=== PATIENT | female | born 1990 | race Hispanic/Latino ===

== ENCOUNTER 2017-07-10 20:44 | Observation (INO) | payer OTHER ==
[2017-07-10 20:56] VITALS: RESP 16; TEMP 98
[2017-07-10] MEDS ORDERED: Iohexol 240 (50 ml) PO ONE (22:07)
[2017-07-10] MEDS ORDERED: Iohexol 240 (50 ml) ONE (22:21)
[2017-07-10 22:22] LABS: BASO % 0.4 % (0.0-2.0); EOS # 0.1 K/uL (0.0-0.7); EOS % 0.9 % (0.0-4.0); HEMATOCRIT 38.2 % (34.0-47.0); MEAN CELL VOLUME 87.7 fl (81.0-99.0); MEAN CORPUSCULAR HEMOGLOBIN 28.9 pg (27.0-31.0); MEAN CORPUSCULAR HGB CONC 32.9 g/dL (33.0-37.0); MEAN PLATELET VOLUME 9.4 fl (7.2-11.7); MONO # 0.7 K/uL (0.0-0.8); MONO % 7.2 % (0.0-10.0); NEUT # 6.2 K/uL (1.8-7.0); NEUT % 61.5 % (50.0-75.0); NRBC % 0.1 % (0.0-0.0); RED CELL DISTRIBUTION WIDTH 15.1 % (11.5-14.5); WHITE BLOOD COUNT 10.1 K/uL (4.8-10.8)
--- NOTE | 2017-07-10 22:23 | ED PDOC ---
HPI: Abdomen Time Seen by Provider: 07/10/17 21:12 Chief Complaint (Nursing): Abdominal Pain Chief Complaint (Provider): Abdominal pain History Per: Patient History/Exam Limitations: no limitations Onset/Duration Of Symptoms: Days (1) Additional Complaint(s): Patient is a 27 y/o female with no significant past medical history presenting to the emergency department for bilateral lower abdominal pain that started today, described as a needle-like, stabbing sensation that is worse on the right side. Also reports intermittent bleeding from the rectum for the past two weeks, with an episode of bright red rectal bleeding occurring once yesterday and once today. Denies NSAID abuse, surgical history, or other complaints. PCP: none provided. ED Scribe Attestation - Scribe Statement Scribe Attestation: Documented by Joviibename acting as a scribe for Christian Lowe MD. Provider Scribe Attestation: All medical record entries made by the Scribe were at my direction and personally dictated by me. I have reviewed the chart and agree that the record accurately reflects my personal performance of the history, physical exam, medical decision making, and the department course for this patient. I have also personally directed, reviewed, and agree with the discharge instructions and disposition. Past Medical History Reviewed: Historical Data Vital Signs: Last Vital Signs Temp 98.0 F 07/10/17 20:53 Pulse 78 07/11/17 03:02 Resp 16 07/10/17 20:53 BP 109/58 L 07/11/17 03:02 Pulse Ox 99 07/11/17 03:02 - Medical History PMH: No Chronic Diseases - Surgical History Surgical History: No Surg Hx - Family History Family History: States: Unknown Family Hx - Social History Current smoker - smoking cessation education provided: Yes Alcohol: Social Drugs: Denies - Home Medications Home Medications: Ambulatory Orders Medication Instructions Recorded Pantoprazole Sodium [Protonix] 20 mg PO DAILY #30 ect 07/11/17 Polyethylene Glycol 3350 [Miralax] 17 gm PO DAILY #10 powd.pack 07/11/17 - Allergies Allergies/Adverse Reactions: Allergies Allergy/AdvReac Type Severity Reaction Status Date / Time No Known Allergies Allergy Verified 07/10/17 20:53 Review of Systems ROS Statement: Except As Marked, All Systems Reviewed And Found Negative Gastrointestinal: Positive for: Abdominal Pain (stabbing, bilateral, worse on the right lower side), Other (rectal bleeding) Physical Exam - Reviewed Nursing Documentation Reviewed: Yes Vital Signs Reviewed: Yes - Physical Exam Appears: Positive for: Well, Non-toxic, No Acute Distress Head Exam: Positive for: ATRAUMATIC, NORMAL INSPECTION, NORMOCEPHALIC Skin: Positive for: Normal Color, Warm, Dry Eye Exam: Positive for: Normal appearance, EOMI, PERRL ENT: Positive for: Normal ENT Inspection Neck: Positive for: Normal, Painless ROM, Supple Cardiovascular/Chest: Positive for: Regular Rate, Rhythm. Negative for: Murmur Respiratory: Positive for: Normal Breath Sounds. Negative for: Accessory Muscle Use, Respiratory Distress Gastrointestinal/Abdominal: Positive for: Tenderness (to palpation of right lower abdominal quadrant) Extremity: Positive for: Normal ROM. Negative for: Pedal Edema Neurologic/Psych: Positive for: Alert, Oriented (x3) - Laboratory Results Result Diagrams: 07/10/17 22:14 07/10/17 22:15 - ECG O2 Sat by Pulse Oximetry: 98 (RA) Pulse Ox Interpretation: Normal Medical Decision Making Medical Decision Making: Time: 21:00 Initial impression: Rule out appendicitis and lower GI bleed Initial plan: CT A/P with IV contrast Labs ED Urine Dipstick ED Urine Omnipaque 50 mL PO Protonix 40 mg IVP All further documentation will take place in ED OBS note. Scribe Attestation: Documented by Alexandra Mcnally, acting as a scribe for Christian Lowe MD. Provider Scribe Attestation: All medical record entries made by the Scribe were at my direction and personally dictated by me. I have reviewed the chart and agree that the record accurately reflects my personal performance of the history, physical exam, medical decision making, and the department course for this patient. I have also personally directed, reviewed, and agree with the discharge instructions and disposition. ED OBSERVATION Discharge: Yes Date of observation admission: 07/10/17 Time of observation admission: 21:00 - Observation admission statement Patient is being placed in observation because:: Pending CT - Goals of Observation Goals of observation are:: CT results - Progress Note Progress Note: 07/10/17 22:30 Patient resting comfortably. Vitals stable. 07/10/17 23:00 Patient resting comfortably. Vitals stable. 07/11/17 00:30 Patient resting comfortably. Vitals stable. 07/11/17 01:19 CT FINDINGS Lower thorax: No acute findings. ABDOMEN: Liver: Unremarkable. No mass. Gallbladder and bile ducts: Unremarkable. No calcified stones. No ductal dilation. Pancreas: Unremarkable. No mass. No ductal dilation. Spleen: Unremarkable. No splenomegaly. Adrenals: Unremarkable. No mass. Kidneys and ureters: Unremarkable. No solid mass. No hydronephrosis. Stomach and bowel: Stool throughout the colon with stasis of material in the distal ileum is consistent with constipation. No obstruction. No mucosal thickening. Appendix: The appendix is normal. PELVIS: Bladder: Unremarkable. No mass. Reproductive: Unremarkable as visualized. ABDOMEN and PELVIS: Intraperitoneal space: Unremarkable. No free air. No significant fluid collection. Bones/joints: No acute fracture. No dislocation. Soft tissues: Unremarkable. Vasculature: Unremarkable. No abdominal aortic aneurysm. Lymph nodes: Unremarkable. No enlarged lymph nodes. IMPRESSION: Stool throughout the colon with stasis of material in the distal ileum is consistent with constipation. The appendix is normal. Patient is stable for discharge home. Dx: constipation Disposition - Clinical Impression Clinical Impression: Constipation - Disposition Disposition: Routine/Home (at 0120 07/11/2017) Disposition Time: 21:00 Condition: STABLE - Pt Status Changed To: Hospital Disposition Of: Observation - POA Present On Arrival: None
[2017-07-10 22:36] LABS: ALB/GLOB RATIO 1.5 (1.0-2.1); ALKALINE PHOSPHATASE 60 U/L (38-126); ALT/SGPT 29 U/L (9-52); AST/SGOT 25 U/L (14-36); BILIRUBIN,TOTAL 0.5 mg/dl (0.2-1.3); BLOOD UREA NITROGEN 13 mg/dl (7-17); CALCIUM 9.1 mg/dL (8.4-10.2); CARBON DIOXIDE 23 mmol/L (22-30); CHLORIDE 103 mmol/L (98-107); GFR AFRICAN-AMERICAN > 60; GLUCOSE,RANDOM 83 mg/dL (65-105); POTASSIUM 3.9 MMOL/L (3.6-5.0); SODIUM 140 mmol/l (132-148); TOTAL PROTEIN 7.1 G/DL (6.3-8.2)
[2017-07-11] MEDS ORDERED: Iohexol 300 100 ML IJ ONE (00:28)
[2017-07-11] MEDS ORDERED: Sodium Chloride 0.9% 50 ML IV ONE (00:28)
[2017-07-11 03:03] VITALS: BP 109/58; PULSE 78
[2017-07-11 03:09] VITALS: O2SAT 98
--- NOTE | 2017-07-11 09:02 | CT ---
PROCEDURE: CT Abdomen and Pelvis with contrast HISTORY: RLQ pain, r/o appendicitis COMPARISON: None. TECHNIQUE: Contrast dose: 90 mL Omnipaque 300 Radiation dose: Total exam DLP = 345.78 mGy-cm. This CT exam was performed using one or more of the following dose reduction techniques: Automated exposure control, adjustment of the mA and/or kV according to patient size, and/or use of iterative reconstruction technique. FINDINGS: LOWER THORAX: Unremarkable. LIVER: Unremarkable. No gross lesion or ductal dilatation. GALLBLADDER AND BILE DUCTS: Unremarkable. PANCREAS: Unremarkable. No gross lesion or ductal dilatation. SPLEEN: Unremarkable. ADRENALS: Unremarkable. No mass. KIDNEYS AND URETERS: Unremarkable. No hydronephrosis. No solid mass. VASCULATURE: Unremarkable. No aortic aneurysm. BOWEL: No bowel obstruction. Retained feces. Fecal matter in distal ileum likely related to fecal stasis. Consistent with constipation. APPENDIX: Not identified. No secondary findings to suggest acute appendicitis. PERITONEUM: Unremarkable. No free fluid. No free air. LYMPH NODES: Unremarkable. No enlarged lymph nodes. BLADDER: Unremarkable. REPRODUCTIVE: Normal uterus. No adnexal masses. BONES: No acute fracture. OTHER FINDINGS: None. IMPRESSION: No evidence of acute appendicitis. Findings consistent with fecal stasis/ constipation. Please correlate clinically. The remainder of the examination is unremarkable. Preliminary interpretation of this examination was reported by [facility] at 1:19 a.m. on 07/11/2017. There is concurrence of this report with the preliminary interpretation.
== END 2017-07-11 03:02 | disposition home or self-care (01) ==
LOC: EDBD 20:44 → H.ER 20:44 → H.EROBSV 21:00
PROVIDERS: ADMIT Emergency Medicine; ATTEND Emergency Medicine
DX: K59.00 Constipation, unspecified (principal); F17.200 Nicotine dependence, unspecified, uncomplicated
CPT/HCPCS: 74177; 80053; 81025; 85025; 96374; 99282; C9113; G0378; Q9966; Q9967